=== PATIENT | female | born 1955 | race Hispanic/Latino ===

== ENCOUNTER 2018-06-15 10:01 | Observation (INO) | payer SELFPAY ==
[2018-06-15 10:39] LABS: Hemoglobin 14.7 g/dL (12.0-16.0); Mean Corpuscular HGB CONC 33.5 g/dL (32.0-36.0); Mean Corpuscular Hemoglobin 30.7 pg (27.0-31.0); Mean Corpuscular Volume 91.8 fL (78.0-98.0); Mean Platelet Volume 7.2 fL (7.4-10.4); Platelet Count 322 thou/uL (130-400); RBC Distribution Width 11.8 % (11.5-14.5); Red Blood Cell (RBC) Count 4.78 mill/uL (4.20-5.40); White Blood Cell (WBC) Count 8.9 thou/uL (4.8-10.8)
--- NOTE | 2018-06-15 10:50 | RAD ---
CHEST ONE VIEW: History: Chest pain Comparison: 09-29-12 FINDINGS: Lungs are clear. No pneumothorax or effusion. Cardiac silhouette and mediastinal contours are within normal limits. IMPRESSION: No acute intrathoracic abnormality. POS: [facility]
[2018-06-15 10:57] LABS: Band 1 % (5-11); Eosinophils 4 % (0-10); Lymphocytes 43 % (21-51); MDiff Complete? YES; Monocytes 7 % (0-10); Neutrophil 37 % (42-75); PLT Morphology Comment Appears Adequate; RBC Morphology Normal; Reactive Lymphocytes 8 % (0-10)
[2018-06-15 10:58] LABS: ALT (SGPT) 27 U/L (8-55); AST (SGOT) 23 U/L (5-34); Albumin 4.2 g/dL (3.5-5.0); Alkaline Phosphatase 72 U/L (40-150); Anion Gap 12 mmol/L (10-20); BUN (Urea Nitrogen) 9 mg/dL (9.8-20.1); Bilirubin, Total 0.4 mg/dL (0.2-1.2); CK (CPK) 70 U/L (29-168); Calc. Creatinine Clearance 0 mL/min (70-130); Calcium 9.4 mg/dL (7.8-10.44); Carbon Dioxide 25 mmol/L (22-29); Chloride 105 mmol/L (98-107); Estimated GFR-MDRD 83; Globulin 3.3 g/dL (2.4-3.5); Glucose 126 mg/dL (70-105); Lipase 17 U/L (8-78); Potassium 3.7 mmol/L (3.5-5.1); Protein, Total 7.5 g/dL (6.0-8.3); Sodium 138 mmol/L (136-145)
[2018-06-15 11:02] LABS: CKMB 0.9 ng/mL (0-6.6); Troponin I Less than 0.010 ng/mL (< 0.028)
[2018-06-15] MEDS ORDERED: Nitroglycerin 0.4 MG TAB (25 Tab Bottle) ONE (11:55)
--- NOTE | 2018-06-15 12:48 | HP ---
DATE OF ADMISSION: 06/15/2018 PRIMARY CARE PHYSICIAN: [facility] call admission. REASON FOR ADMISSION: Chest pain. HISTORY OF PRESENT ILLNESS: A 62-year-old female who has no significant past medical histor y and she does not have any primary care physician and she is not following up for any routine check. She came to emergency room today with a left-sided chest pain. She reports that when she woke up t his morning, at that time, she was feeling sore on her left side. It was constant without any specif ic aggravating or relieving factor. She did not have any associated nausea, vomiting, diaphoresis. She was denying any relation of chest pain with food, respiration or activity. She felt mild shortne ss of breath and that is why she decided to come to the emergency room for evaluation. When she came to emergency room, her blood pressure was 190/97. She was slightly tachycardic. She w as saturating normal. She was afebrile. She did not have any upper or lower respiratory symptoms. She did not have any cough or hemoptysis. She denies any lower extremity edema, orthopnea, PND. The patient reports that she did not have any exertion related chest pain before this episode. The patient denies any UTI symptoms. She denies any constipation, diarrhea, melena, hematochezia. S he denies any abdominal pain. She denies any acid reflux symptoms. REVIEW OF SYSTEMS: The following complete review of systems was negative, unless otherwise mentioned in the HPI or below: Constitutional: Weight loss or gain, ability to conduct usual activities. Sk in: Rash, itching. Eyes: Double vision, pain. ENT/Mouth: Nose bleeding, neck stiffness, pain, te nderness. Cardiovascular: Palpitations, dyspnea on exertion, orthopnea. Respiratory: Shortness of breath, wheezing, cough, hemoptysis, fever or night sweats. Gastrointestinal: Poor appetite, abdom inal pain, heartburn, nausea, vomiting, constipation, or diarrhea. Genitourinary: Urgency, frequenc y, dysuria, nocturia. Musculoskeletal: Pain, swelling. Neurologic/Psychiatric: Anxiety, depressio n. Allergy/Immunologic: Skin rash, bleeding tendency. Please see my HPI for pertinent positive and negative. All other review of system reviewed and negative except as mentioned in the HPI. PAST MEDICAL HISTORY: Reviewed and negative. PAST SURGICAL HISTORY: Reviewed and negative. PAST PSYCHIATRIC HISTORY: Reviewed and negative. SOCIAL HISTORY: The patient lives at home with family. She denies any tobacco, alcohol or illicit d rug abuse. She is not working. FAMILY HISTORY: The patient denies any strong family history of premature coronary artery disease, s troke or cancer. ALLERGIES: No known drug allergy. CURRENT HOME MEDICATIONS: The patient is not taking any prescribed or non-prescribed medication. EMERGENCY ROOM COURSE: The patient is given nitroglycerin 0.4 mg sublingual x2 and aspirin. PHYSICAL EXAMINATION: VITAL SIGNS: On arrival, blood pressure 190/97, pulse 98, respiratory rate 18, temperature 98.5, sat uration 98% on room air, weight 58.9 kilograms. GENERAL: The patient is currently alert, awake, in no obvious acute distress. HEAD: Normocephalic, atraumatic. EYES: Pupils round and reactive to light. Extraocular muscle intact. ENT: Oropharynx within normal limits. Moist mucous membrane. No oral lesion, no pharyngeal erythem a, no exudate. NECK: Supple. No JVD, no thyromegaly, no carotid bruit, no jugular venous distention. LUNGS: Clear to auscultation without any rhonchi or rales. CARDIOVASCULAR: S1, S2 regular. No murmur, no gallop, no rub. CHEST WALL: The patient does have mild reproducibility on the left side around breast bone. ABDOMEN: Soft. Bowel sounds present. No epigastric tenderness, no Elkins's sign, no peritoneal sig ns, no organomegaly, no mass, no suprapubic tenderness. BACK: Unremarkable. No CVA tenderness. EXTREMITIES: Upper extremities, passive movement of all joints are normal. Lower extremities, no ed lashawn. Good distal pulsation. No calf tenderness. SKIN: No skin rash. HEMATOLOGICAL: No lymphadenopathy. NEUROLOGIC: Nonfocal examination. SIGNIFICANT LABORATORY DATA: EKG showing LVH with nonspecific ST-T changes. CBC, WBC 8.9, hemoglobi n 14.7, platelets 322,000. BMP, sodium 138, potassium 3.7, chloride 105, carbon dioxide 25, anion ga p 12, BUN 9, creatinine 0.72, glucose 126, calcium 9.4. LFT, AST 23, ALT 27, alkaline phosphatase 72 , albumin 4.2, CK 70, CK-MB 0.9. Troponin I less than 0.010. Lipase 17. ASSESSMENT AND PLAN: 1. Acute chest pain, rule out acute coronary syndrome. The patient will be observed on telemetry fl oor. We will do serial cardiac enzymes x3. We will check lipid profile for risk stratification. Ni tropatch q.8 hourly. We will continue aspirin 325 mg p.o. daily. For diagnostic reason, the patient will need exercise Cardiolite stress test. 2. New diagnosis of hypertension. The patient has high blood pressure on admission. We will monito r while in hospital and we will start antihypertensive medication. 3. Deep venous thrombosis prophylaxis not needed because the patient is low risk. 4. Gastrointestinal prophylaxis, Pepcid 20 mg p.o. b.i.d. 5. Code status, the patient is full code. The patient does not have any surrogate decision maker. Disposition plan based on clinical course. We are expecting the patient's stay in hospital 24 hours. Plan of care discussed with the patient in detail. We will check D-dimer and if D-dimer is positive, then we will do CT angiography if needed.
[2018-06-15] MEDS ORDERED: Senokot S 8.6-50 MG TAB PO PRN (13:40)
[2018-06-15] MEDS ORDERED: Cepastat Lozenges 1 LOZ PO PRN (13:40)
[2018-06-15] MEDS ORDERED: Loperamide HCl 2 MG CAP PO PRN (13:40)
[2018-06-15] MEDS ORDERED: Ondansetron ODT 4 MG TAB PO PRN (13:40)
[2018-06-15] MEDS ORDERED: hydrALAZINE 20 MG/ML VIAL SLOW IVP PRN (13:40)
[2018-06-15] MEDS ORDERED: Bisacodyl 10 MG SUPP PR PRN (13:40)
[2018-06-15] MEDS ORDERED: Loratadine 10 MG TAB PO PRN (13:40)
[2018-06-15] MEDS ORDERED: Artificial Tears 18 DROP/0.9 ML EA EYE PRN (13:40)
[2018-06-15] MEDS ORDERED: Sodium Chloride 0.65% Nasal 44 ML BOT EA NARE PRN (13:40)
[2018-06-15] MEDS ORDERED: Calcium Carbonate 500 MG ChewTAB PO PRN (13:40)
[2018-06-15] MEDS ORDERED: Ondansetron PF 4 MG/2 ML Vial IVP PRN (13:40)
[2018-06-15] MEDS ORDERED: Nitroglycerin 0.4 MG TAB (25 Tab Bottle) SL PRN (13:40)
[2018-06-15] MEDS ORDERED: Acetaminophen 325 MG TAB PO PRN (13:40)
[2018-06-15] MEDS ORDERED: Zolpidem Tartrate 5 MG TAB PO PRN (13:40)
[2018-06-15] MEDS ORDERED: Bisacodyl 5 MG TAB PO PRN (13:40)
[2018-06-15] MEDS ORDERED: Eucerin (Mineral Oil/Petrolatum,White) 30 gm Jar TOP PRN (13:40)
[2018-06-15] MEDS ORDERED: Nitroglycerin 2% Ointment 1 INCH/1 GM Packet ONE (14:01)
[2018-06-15 14:16] LABS: Troponin I Less than 0.010 ng/mL (< 0.028)
[2018-06-15] MEDS ORDERED: Aspirin 325 MG TAB PO SCH (15:45)
[2018-06-15 16:25] VITALS: BMI 26.7
[2018-06-15 17:23] LABS: Troponin I Less than 0.010 ng/mL (< 0.028)
[2018-06-15] MEDS: HYDROcodone/Acetaminophen 5/325 mg Tablet PO PRN ×2 (17:27→22:25)
[2018-06-15] MEDS ORDERED: Famotidine 20 MG TAB PO SCH (21:00)
[2018-06-15] MEDS: Nitroglycerin 2% Ointment 1 INCH/1 GM Packet TOP SCH (21:39)
[2018-06-16 04:47] LABS: Cardiac Risk 3.8 (Less than 4.5)
[2018-06-16] MEDS: Nitroglycerin 2% Ointment 1 INCH/1 GM Packet TOP SCH (06:03)
[2018-06-16 08:13] VITALS: BP 157/74; TEMP 98
[2018-06-16] MEDS ORDERED: Aspirin 325 MG TAB PO SCH (09:00)
--- NOTE | 2018-06-16 10:29 | PDOC.PN ---
- Subjective Encounter Start Date: 06/16/18 Encounter Start Time: 06:50 Patient seen and examined. No new complaints. No overnight events - Objective Resuscitation Status: Resuscitation Status FULL:Full Resuscitation MAR Reviewed: Yes Vital Signs & Weight: Vital Signs (12 hours) Temp Pulse Resp BP Pulse Ox 06/16/18 08:16 95 06/16/18 07:45 98.0 F 65 20 157/74 H 95 06/15/18 23:29 98.5 F 72 15 134/65 96 Weight Weight 141 lb 8 oz I&O: 06/15/18 06/16/18 06/17/18 06:59 06:59 06:59 Intake Total 1200 Output Total 1550 Balance -350 Result Diagrams: 06/15/18 10:20 06/15/18 10:20 EKG Reviewed by me: Yes (nsr) Phys Exam - Physical Examination Constitutional: NAD HEENT: PERRLA, moist MMs, sclera anicteric Neck: no JVD, supple Respiratory: no wheezing, no rales, no rhonchi Cardiovascular: RRR, no significant murmur, no rub Gastrointestinal: soft, non-tender, no distention, positive bowel sounds Musculoskeletal: no edema, pulses present Neurological: non-focal, normal sensation, moves all 4 limbs Psychiatric: normal affect, A&O x 3 Skin: no rash, normal turgor Dx/Plan (1) Chest pain Code(s): R07.9 - CHEST PAIN, UNSPECIFIED Status: Acute (2) Hypertension Code(s): I10 - ESSENTIAL (PRIMARY) HYPERTENSION Status: Acute - Plan cont current plan of care * today stress test, if negative will DC to home * will give lisinopril 5 mg daily on dishcarge * medication reviewed as below * symptomatic treatment. Review of Systems - Review of Systems Eyes: negative: Pain, Vision Change, Conjunctivae Inflammation, Eyelid Inflammation, Redness, Other ENT: negative: Ear Pain, Ear Discharge, Nose Pain, Nose Discharge, Nose Congestion, Mouth Pain, Mouth Swelling, Throat Pain, Throat Swelling, Other Respiratory: negative: Cough, Dry, Shortness of Breath, Hemoptysis, SOB with Excertion, Pleuritic Pain, Sputum, Wheezing Cardiovascular: negative: chest pain, palpitations, orthopnea, paroxysmal nocturnal dyspnea, edema, light headedness, other Gastrointestinal: negative: Nausea, Vomiting, Abdominal Pain, Diarrhea, Constipation, Melena, Hematochezia, Other Genitourinary: negative: Dysuria, Frequency, Incontinence, Hematuria, Retention , Other Musculoskeletal: negative: Neck Pain, Shoulder Pain, Arm Pain, Back Pain, Hand Pain, Leg Pain, Foot Pain, Other Skin: negative: Rash, Lesions, Edgardo, Bruising, Other - Medications/Allergies Allergies/Adverse Reactions: Allergies Allergy/AdvReac Type Severity Reaction Status Date / Time No Known Drug Allergies Allergy Verified 06/15/18 16:59 Medications: Current Medications Acetaminophen (Tylenol) 650 mg PO Q4H PRN PRN Reason: Headache/Fever/Mild Pain (1-3) Hydrocodone Bitart/Acetaminophen ([place] 5/325) 1 tab PO Q4H PRN PRN Reason: Moderate Pain (4-6) Last Admin: 06/15/18 22:25 Dose: 1 tab Artificial Tears (Tears Naturale) 2 drop EA EYE PRN PRN PRN Reason: Dry Eyes Aspirin (Aspirin) 325 mg PO DAILY RAFY Bisacodyl (Dulcolax) 10 mg PO DAILYPRN PRN PRN Reason: Constipation Bisacodyl (Dulcolax) 10 mg [place] DAILYPRN PRN PRN Reason: Constipation Calcium Carbonate (Tums) 1,000 mg PO Q4H PRN PRN Reason: Heartburn or Indigestion Famotidine (Pepcid) 20 mg PO BID [facility] Last Admin: 06/15/18 20:35 Dose: 20 mg Hydralazine HCl (Apresoline) 10 mg SLOW IVP Q4H PRN PRN Reason: SBP > 180 and HR < 70 Loperamide HCl (Imodium) 2 mg PO PRN PRN PRN Reason: Diarrhea/Loose Stools Loratadine (Claritin) 10 mg PO DAILYPRN PRN PRN Reason: Sinus Symptoms Mineral Oil/White Petrolatum (Eucerin Cream) 0 gm TOP BIDPRN PRN PRN Reason: Dry Skin Nitroglycerin (Nitrostat) 0.4 mg SL Q5MIN PRN PRN Reason: Chest Pain Nitroglycerin (Nitro-Bid 2% Ointment) 0.5 inch TOP Q8HR [facility] Last Admin: 06/16/18 06:03 Dose: Not Given Ondansetron HCl (Zofran Odt) 4 mg PO Q6H PRN PRN Reason: Nausea/Vomiting Ondansetron HCl (Zofran) 4 mg IVP Q6H PRN PRN Reason: Nausea/Vomiting Senna/Docusate Sodium (Senokot S) 2 tab PO BID PRN PRN Reason: Constipation Sodium Chloride ([place] Nasal [place] 0.65%) 0 ml EA NARE QIDPRN PRN PRN Reason: Nasal Congestion Throat Lozenges (Cepastat Lozenges) 1 yanna PO Q2H PRN PRN Reason: Sore Throat Zolpidem Tartrate (Ambien) 5 mg PO HSPRN PRN PRN Reason: Insomnia
--- NOTE | 2018-06-16 11:23 | DIS ---
DATE OF ADMISSION: 06/15/2018 DATE OF DISCHARGE: 06/16/2018 PRIMARY CARE PHYSICIAN: [facility] call admission. DISCHARGE DISPOSITION: Home. PRIMARY DISCHARGE DIAGNOSIS: Chest pain, ruled out acute coronary syndrome. SECONDARY DISCHARGE DIAGNOSIS: Hypertension. PRIMARY PROCEDURE/OPERATION: None. RADIOLOGICAL INVESTIGATION: Chest x-ray normal. Stress test negative. SIGNIFICANT LABORATORY DATA: WBC 8.9, hemoglobin 14.7, platelets 322,000. D-dimer 0.31. Sodium 138 , creatinine 0.72. LFT normal. Cardiac enzymes negative. LDL 125. DISCHARGE MEDICATIONS: Lisinopril 5 mg p.o. daily. CONTRAINDICATIONS: None. CODE STATUS: Full code. INPATIENT CONSULTANTS: None. ALLERGIES: No known drug allergy. DISCHARGE PLAN: Post hospital, the patient will follow up with primary care physician in 1 week. HOSPITAL COURSE: A 62-year-old female who was admitted for chest pain. Please see my HPI for furthe r detail. She had normal EKG, normal chest x-ray and normal D-dimer. Her cardiac enzymes remained n egative. She was hypertensive. She has undiagnosed hypertension and that is why we started lisinopr il on this admission. Her lipid profile is showing LDL 125 and that is why we provided dietary educa tion. She underwent stress test and that came back normal. The patient will be discharged home today and she will follow up with primary care physician. The patient is seen and examined. Please see my progress note from today for further detail.
--- NOTE | 2018-06-16 12:53 | NM ---
CARDIAC SPECT: HISTORY: A 62-year-old female with chest pain. TECHNIQUE: A myocardial perfusion scan was performed using the single isotope one day protocol with technetium 9 9m sestamibi, and 11 millicuries was injected intravenously for the rest exam, followed by 33 millicu zach for the stress exam. Exercise stress was monitored and interpreted by Dr. Bhatt. FINDINGS: Homogeneous tracer distribution is seen in the myocardial segments on stress and rest images without fixed or reversible defects. GATED SPECT LVEF: Above 60%, visually. IMPRESSION: Normal myocardial perfusion scan. POS: [facility]
== END 2018-06-16 11:46 | disposition home or self-care (01) ==
LOC: ERS 10:01 → ERHOLD 12:46 → 2SW 16:10
PROVIDERS: ADMIT Internal Medicine; ATTEND Internal Medicine
DX: R07.9 Chest pain, unspecified (principal); I10 Essential (primary) hypertension
CPT/HCPCS: 36415; 71045; 78452; 80053; 80061; 82553; 83690; 84484; 85025; 85379; 90471; 90686; 93005; 93017; 94760; A9500; G0008; G0378

== ENCOUNTER 2021-03-29 14:15 | Outpatient (CLI) | payer OTHER | END 2021-03-29 14:16 | disposition home or self-care (01) | LOC: BICMAMMO 14:15 | PROVIDERS: ATTEND Specialist | DX: N63.20 Unspecified lump in the left breast, unspecified quadrant (principal) | CPT/HCPCS: 77066; G0279 ==

== ENCOUNTER 2023-04-26 20:48 | Observation (INO) | payer OTHER, SELFPAY ==
[~2023-04-26 20:48] MED LIST: Iopamidol-370 76% 500 ML MDV (1 ML CHARGE) ONE
[2023-04-26 21:31] LABS: #Basophils 0.1 thou/uL (0.0-0.2); #Eosinphils 0.3 thou/uL (0.0-0.7); #Monocytes 0.7 thou/uL (0.11-0.59); #Neutrophils 4.3 thou/uL (1.40-6.50); %Basophils 0.7 % (0.0-1.0); %Eosinophils 2.4 % (0.0-10.0); %Lymphocytes 49.8 % (21.0-51.0); %Monocytes 6.2 % (0.0-10.0); %Neutrophils 40.6 % (42.0-75.0); Hematocrit 43.2 % (36.0-47.0); Hemoglobin 15.4 g/dL (12.0-16.0); Mean Corpuscular HGB CONC 35.6 g/dL (32.0-36.0); Mean Corpuscular Hemoglobin 31.5 pg (27.0-31.0); Mean Corpuscular Volume 88.3 fl (78.0-98.0); Mean Platelet Volume 9.8 fL (7.4-10.4); Platelet Count 303 10x3/uL (130-400); RBC Distribution Width 12.4 % (11.5-14.5); Red Blood Cell (RBC) Count 4.89 mill/uL (4.20-5.40); White Blood Cell (WBC) Count 10.5 10x3/uL (4.8-10.8)
[2023-04-26 21:52] LABS: ALT (SGPT) 12 U/L (8-55); AST (SGOT) 20 U/L (5-34); Albumin 4.7 g/dL (3.4-4.8); Alkaline Phosphatase 68 U/L (40-110); Anion Gap 18 mmol/L (10-20); BUN (Urea Nitrogen) 10 mg/dL (9.8-20.1); Bilirubin, Total 0.3 mg/dL (0.2-1.2); Calc. Creatinine Clearance 0 mL/min (70-130); Calcium 9.9 mg/dL (7.8-10.44); Carbon Dioxide 23 mmol/L (23-31); Chloride 104 mmol/L (98-107); Estimated GFR 94; Glucose 94 mg/dL (80-115); Potassium 3.6 mmol/L (3.5-5.1); Protein, Total 8.7 g/dL (5.8-8.1); Sodium 141 mmol/L (136-145)
[2023-04-26 21:54] LABS: Troponin I Less than 0.010 ng/mL (< 0.028)
[2023-04-26] MEDS ORDERED: Ketorolac Tromethamine 30 MG/ML VIAL ONE (21:54)
[2023-04-26 22:49] LABS: Bilirubin Negative (Negative); Blood, Urine Negative (Negative); Clarity Clear (Clear); Glucose, Urine (Dipstick) Normal (Negative); Ketone, Urine Negative (Negative); Leukocyte 25 Leu/uL (Negative); Nitrite Negative (Negative); Protein, Urine (Dipstick) Negative (Neg-Trace); RBC/HPF 0-3 HPF (0-3); Specific Gravity, Urine 1.019 (1.002-1.036); Urobilinogen Normal mg/dL (Less than 2); WBC/HPF 0-3 HPF (0-3); pH, Urine 7.5 (5.0-9.0)
[2023-04-26 22:50] LABS: Bacteria/HPF None Seen HPF (None Seen); CAUTI Indications for Culture Alt mental st,lethar; Squamous Epithelial 0-3 HPF (0-3)
[2023-04-26] MEDS ORDERED: hydrALAZINE 20 MG/ML VIAL ONE (22:50)
[2023-04-26 22:54] LABS: Urine Culture Reflex No No
[2023-04-26] MEDS ORDERED: Aspirin Chewable 81 MG TAB ONE (23:12)
[2023-04-26] MEDS ORDERED: Ondansetron ODT 4 MG TAB SL PRN (23:45)
[2023-04-26] MEDS ORDERED: Acetaminophen 325 MG TAB PO PRN (23:45)
[2023-04-26] MEDS ORDERED: Ondansetron PF 4 MG/2 ML Vial IVP PRN (23:45)
[2023-04-27 00:58] LABS: Troponin I Less than 0.010 ng/mL (< 0.028)
[2023-04-27] MEDS ORDERED: hydrALAZINE 20 MG/ML VIAL SLOW IVP PRN (01:42)
[2023-04-27] MEDS ORDERED: Sodium Chloride 0.9% 1,000 ML IV SCH (03:30)
[2023-04-27 04:52] LABS: Cardiac Risk 4.4 (Less than 4.5)
[2023-04-27 05:55] LABS: Troponin I 0.013 ng/mL (< 0.028)
[2023-04-27] MEDS ORDERED: Lisinopril 10 MG TAB PO SCH (09:00)
[2023-04-27] MEDS ORDERED: Aspirin 81 mg Enteric Coated Tablet PO SCH (09:00)
[2023-04-27 11:18] VITALS: BP 112/55; TEMP 98.2
[2023-04-27] MEDS ORDERED: Rosuvastatin 20 MG TAB PO SCH (21:00)
== END 2023-04-27 12:15 | disposition home or self-care (01) ==
LOC: ERS 20:48 → 2SW 23:36
PROVIDERS: ADMIT Internal Medicine Nephrology; ATTEND Internal Medicine Nephrology
DX: M54.12 Radiculopathy, cervical region (principal); R20.0 Anesthesia of skin; I16.0 Hypertensive urgency; E78.00 Pure hypercholesterolemia, unspecified; R29.90 Unspecified symptoms and signs involving the nervous system; Z79.899 Other long term (current) drug therapy
CPT/HCPCS: 36415; 36416; 70450; 70496; 70498; 70551; 71045; 80053; 80061; 81001; 83605; 84443; 84484; 85025; 85379; 86850; 86900; 86901; 93005; 93306; 96374; 96375; G0378; J0360; J1885; J7050; Q9967